=== PATIENT | female | born 1965 | race Caucasian/White ===

== ENCOUNTER 2022-06-03 14:19 | Emergency (ER) | payer BC ==
[2022-06-03] MEDS ORDERED: Boostrix 0.5 ML (Tdap) VIAL (>/=7 yrs of age) ONE (14:48)
[2022-06-03] MEDS ORDERED: Lidocaine 1% w/Epinephrine 1:100K 50 ML VIAL ONE (15:03)
== END 2022-06-03 16:08 | disposition home or self-care (01) ==
LOC: BURERS 14:19
DX: S51.811A Laceration without foreign body of right forearm, initial encounter (principal); W26.8XXA Contact with other sharp object(s), not elsewhere classified, initial encounter; Z23 Encounter for immunization
CPT/HCPCS: 12002; 90471; 90715